=== PATIENT | male | born 1985 | race African-American/Black ===

== ENCOUNTER 2020-06-16 20:11 | Emergency (ER) | payer MEDICAID ==
[~2020-06-16] VITALS: Ht 182.9 cm; Wt 94.5 kg
[2020-06-16 20:42] LABS: MICROSCOPIC NOT IND
[2020-06-16 20:54] LABS: AMPHETAMINE SCREEN, URINE Negative (Negative); BARBITURATE SCREEN, URINE Negative (Negative); BENZODIAZEPINE SCREEN, URINE Negative (Negative); CANNABINOID SCREEN, URINE Positive (Negative); COCAINE SCREEN, URINE Negative (Negative); METHADONE SCREEN, URINE Negative (Negative); OPIATE SCREEN, URINE Negative (Negative)
[2020-06-16 21:48] VITALS: BP 123/81
[2020-06-16 23:01] LABS: ANION GAP 4 mmol/L (5-15); CALCIUM 8.8 mg/dL (8.5-10.1); CHLORIDE 106 mmol/L (98-107)
[2020-06-16 23:06] LABS: CREATININE 1.08 mg/dL (0.7-1.3); TROPONIN I < 0.015 ng/mL (0.000-0.045)
[2020-06-16 23:17] LABS: BASOPHILS % (AUTO) 1 % (0-1); EOSINOPHILS % (AUTO) 5 % (1-7); LYMPHOCYTES % (AUTO) 34 % (22-44); MEAN CORPUSCULAR HEMOGLOBIN 30.9 pg (27.5-34.5); MEAN CORPUSCULAR HGB CONC 33.4 g/dL (33.2-36.2); MEAN PLATELET VOLUME 9.6 fL (7.4-10.4); MONOCYTES % (AUTO) 5 % (2-9); NEUTROPHILS % (AUTO) 55 % (42-75); PLATELET COUNT 212 x10^3/uL (130-400); RED BLOOD COUNT 4.29 x10^6/uL (4.38-5.82); RED CELL DISTRIBUTION WIDTH 12.4 % (9.4-14.8)
[2020-06-16] MEDS ORDERED: MAALOX/HYOSCYAMINE/LIDOCAINE 45 ML BTL ONE (23:17)
[2020-06-16 23:19] LABS: MD NO
--- NOTE | 2020-06-16 23:20 | NUR ---
FIRST CONTACT WITH PT. CC OF L SIDE ABD PAIN 1.5 WEEKS 01/31 IN PAIN DESCRIBED "IN A BALL". PT REQUESTING TO HAVE " ALL MY INTESTINES LOOKAED AT". HX OF DIVERTICULITIS.
[2020-06-16] MEDS ORDERED: MAALOX/HYOSCYAMINE/LIDOCAINE 45 ML BTL PO ONE (23:30)
--- NOTE | 2020-06-16 23:34 | NUR ---
THAO RN: PT PROVIDED WITH A TAXI VOUCHER
--- NOTE | 2020-06-16 23:34 | NUR ---
Patient/Caregiver given discharge instructions and they have confirmed that they understand the instructions. Patient ambulatory with steady gait.
== END 2020-06-16 23:42 | disposition home or self-care (01) ==
LOC: ED 23:30
DX: K21.00 Gastro-esophageal reflux disease with esophagitis, without bleeding (principal); I49.8 Other specified cardiac arrhythmias; R07.89 Other chest pain
CPT/HCPCS: 36415; 71045; 80048; 80307; 81003; 82040; 84484; 85025; 93005; 99285

== ENCOUNTER 2021-03-11 20:48 | Emergency (ER) | payer MEDICAID ==
[~2021-03-11] VITALS: Ht 182.9 cm; Wt 90.2 kg
[2021-03-11 21:37] LABS: BASOPHILS % (AUTO) 1 % (0-1); EOSINOPHILS % (AUTO) 4 % (1-7); LYMPHOCYTES % (AUTO) 32 % (22-44); MEAN CORPUSCULAR HEMOGLOBIN 30.8 pg (27.5-34.5); MEAN CORPUSCULAR HGB CONC 33.6 g/dL (33.2-36.2); MEAN PLATELET VOLUME 9.5 fL (7.4-10.4); MONOCYTES % (AUTO) 6 % (2-9); NEUTROPHILS % (AUTO) 57 % (42-75); PLATELET COUNT 235 x10^3/uL (130-400); RED BLOOD COUNT 4.55 x10^6/uL (4.38-5.82); RED CELL DISTRIBUTION WIDTH 12.3 % (9.4-14.8)
[2021-03-11 21:49] LABS: ALBUMIN 4.1 g/dL (3.4-5.0); ANION GAP 6 mmol/L (5-15); CALCIUM 10.1 mg/dL (8.5-10.1); CHLORIDE 106 mmol/L (98-107); SALICYLATE LEVEL 2.3 mg/dL (2.8-20.0)
[2021-03-11 21:50] LABS: CREATININE 0.91 mg/dL (0.7-1.3)
--- NOTE | 2021-03-12 00:18 | NUR ---
ELECTRICAL ACCESSORIES ASSEMBLER: PT AMBULATORY TO ROOM C STEADY GAIT AT THIS TIME.
--- NOTE | 2021-03-12 00:35 | NUR ---
PT PRESENTS TO ER FOR DEPRESSION, PT STATES HE IS JUST NOT DOING WELL RIGHT NOW, HIS SON IS IN [place] AND HIS MOM IS IN [place], PT STATES HE QUIT HIS JOB RECENTLY BECAUSE HE FELT HE WASNT BEING VALUED THERE, PT STATES HE IS HAVING SUICIDAL THOUGHTS BUT HAS NO PLAN OR INTENTION OF COMMITING SUICIDE, PT STATES HE HAS A HISTORY DEPRESSION, ANXIETY AND BIPOLAR 1, PT NOT TAKING HIS MEDS BECAUSE THEY MAKE HIM FEEL BAD
--- NOTE | 2021-03-12 01:13 | NUR ---
RECEIVED REPORT FROM SONYA FLORES
--- NOTE | 2021-03-12 02:13 | NUR ---
BREAK RN: PT SITTING UPRIGHT IN BED, NADN, VSS. SAFETY PRECAUTIONS IN PLACE. NO NEEDS AT THIS TIME. AWAITING TELEPSYCH
--- NOTE | 2021-03-12 03:38 | NUR ---
pt resting on mayela, denies needs at this time
--- NOTE | 2021-03-12 04:11 | NUR ---
pt resting on gurney, denies needs at this time.
--- NOTE | 2021-03-12 06:22 | NUR ---
pt resting on gurney, denies needs at this time, telepsych at bedside.
--- NOTE | 2021-03-12 06:34 | NUR ---
pt placed on a Legal hold, belongings removed and placed in locker, pt's room secured and sitter at bedside.
--- NOTE | 2021-03-12 07:07 | NUR ---
Called [facility] to look at accepting this patient.
[2021-03-12 07:29] LABS: AMPHETAMINE SCREEN, URINE Negative (Negative); BARBITURATE SCREEN, URINE Negative (Negative); BENZODIAZEPINE SCREEN, URINE Negative (Negative); CANNABINOID SCREEN, URINE Positive (Negative); COCAINE SCREEN, URINE Negative (Negative); METHADONE SCREEN, URINE Negative (Negative); OPIATE SCREEN, URINE Negative (Negative)
--- NOTE | 2021-03-12 08:58 | NUR ---
U unable to accept patient because patient refuses covid test.
--- NOTE | 2021-03-12 09:03 | NUR ---
PT REFUSING COVID SWAB
--- NOTE | 2021-03-12 09:08 | NUR ---
Chart faxed to [facility] and [facility] at this time.
--- NOTE | 2021-03-12 09:35 | NUR ---
PT EDUCATED ON PLAN OF CARE, PT REFUSES COVID SWAB. PT YELLING AT STAFF AND RN. REQUESTING A BUDGET MANAGER, CHARGE SIGIFREDO AND ED RICHARD CARD NOTIFIED. SECURITY CALLED. PT WILL NOT GET BACK IN THE ROOM . REPORT CHANCE TO ASHELY
[2021-03-12 09:41] VITALS: BP 154/108
--- NOTE | 2021-03-12 09:42 | NUR ---
P AGITATED AFTER CONVERSATION WITH ANOTHER RN THAT HE MAY HAVE TO STAY IN THE ER FOR AWHILE SINCE HE HAS REFUSED BEING SWABBED FOR COVID. SECURITY OUTSIDE ROOM WHILE VS AND REASSESSMENTS WERE COMPLETED. PT BREAKFAST TRAY DELIVERED. ROOM SECURED. SITTER OUSIDE ROOM IN DIRECT LINE OF SIGHT.
--- NOTE | 2021-03-12 09:55 | NUR ---
THROUGHIsac CHRISTY RN: RECEIVED CALL FROM HUSSEIN AT [facility], PT ACCEPTED, WOULD LIKE TRANSPORT AFTER 1100.
--- NOTE | 2021-03-12 10:25 | NUR ---
THROUGH PUT RN: PCS FORM FAXED TO [facility], FAX CONFIRMATION RECEIVED.
--- NOTE | 2021-03-12 10:48 | NUR ---
REPORT TO HUSSEIN AT [facility]
== END 2021-03-12 12:21 ==
LOC: ED 23:59 → EDIP 03-12 07:42 → UNDOADMOB 03-12 07:42 → ED 03-12 12:15
DX: F32.0 Major depressive disorder, single episode, mild (principal); R45.851 Suicidal ideations
CPT/HCPCS: 36415; 80048; 80299; 80307; 80320; 80329; 82040; 85025; 99285; G0480